=== PATIENT | female | born 1960 | race Caucasian/White ===

== ENCOUNTER 2018-02-02 08:09 | Day surgery (SDC) | payer OTHER ==
--- OUTSIDE RECORDS SUMMARY | 2018-02-02 08:18 | XMS REPORT ---
:1960 [facility] Address [address] [place] [address] [address] Care Team Providers Name Role Phone DR GEMINI STUBBS Unavailable Unavailable Problems This patient has no known problems. Allergies, Adverse Reactions, Alerts This patient has no known allergies or adverse reactions. Medications This patient has no known medications. Encounters Start End Encounter Admission Attending Care Care Encounter Date/Time Date/Time Type Type Clinicians Facility Department ID 2017-07-03 2017-07-03 Outpatient C JOSSE STUBBS [facility] [place] [id number] 05:28:00 12:46:00 GEMINI Results Test Description Test Time Test Comments Text Results Atomic Results Result Comments URINE MONOCLONALFB 2017-07-03 10:47:00 Test Item Value Reference Range Comments PREG UR (test code=PGU) NEGATIVE NEGATIVE
--- NOTE | 2018-02-02 08:25 | EKG ---
Test Date: 2018-02-02 Test Time: 07:56:57 German Tutor: CONOR MEASUREMENT RESULTS: Intervals: Rate: 67 CA: 156 QRSD: 110 QT: 412 QTc: 435 Webster: P: -2 CA: 156 QRS: -10 T: 15 INTERPRETIVE STATEMENTS: Normal sinus rhythm Normal ECG Compared to ECG 06/10/2017 13:25:08 Left ventricular hypertrophy no longer present Electronically Signed On 02-02-18 08:25:21 CDT by Mac Mensah
[2018-02-02] MEDS ORDERED: SCOPOLAMINE HYDROBROMIDE PATCH TD ONE (08:26)
[2018-02-02] MEDS ORDERED: CEFAZOLIN/SWI 1gm 1 GM/10 ML SYR ONE (08:26)
[2018-02-02] MEDS ORDERED: Ringers Lactate 1,000 ML IV ONE ×2 (08:26→11:12)
[2018-02-02 08:40] LABS: Urine Appearance CLEAR; Urine Bilirubin NEGATIVE (NEG); Urine Color PALE YELLOW; Urine Glucose NEGATIVE (NEG); Urine Specific Gravity 1.025 (1.005-1.030)
[2018-02-02 08:41] LABS: Urine Blood NEGATIVE (NEG); Urine Microscopic Reflex NO UMIC; Urine Protein NEGATIVE (NEG); Urine Urobilinogen 0.2 mg/dL (0.2-1.0); Urine pH 5.5 (5.0-7.0)
[2018-02-02 08:58] LABS: Potassium 4.1 mEq/L (3.6-5.0)
[2018-02-02] MEDS ORDERED: EPINEPHRINE/PF 1 MG/ML AMP ONE (09:01)
[2018-02-02 09:02] LABS: Absolute Lymphocytes (CBC) 2.7 K/uL (0.7-4.9); Absolute Monocytes 0.6 K/uL (0.1-1.3); Absolute Neutrophil 2.2 K/uL (1.8-8.0); Eosinophils % 4.4 % (0-4.4); Hematocrit 39.6 % (36.0-45.0); Lymphocytes % 46.2 % (15.3-44.8); MCH 29.7 pg (27.0-35.0); MCV 89.4 fL (80-100); MPV 9.3 fL (7.6-11.3); RBC Red Blood Cell Count 4.43 M/uL (3.86-4.86)
[2018-02-02] MEDS ORDERED: NA CHLORIDE 0.9% 2,000 ML ONE (09:02)
[2018-02-02] MEDS ORDERED: PROPOFOL 200 MG/20 ML VIAL IV ONE (09:21)
[2018-02-02] MEDS ORDERED: ROCURONIUM 50 MG/5 ML VIAL IV ONE (09:22)
[2018-02-02] MEDS ORDERED: FENTANYL CITR 250 MCG/5 ML ONE (09:22)
[2018-02-02] MEDS ORDERED: LIDOCAINE 2% MPF 5 ML VIAL ONE (09:22)
[2018-02-02] MEDS ORDERED: ONDANSETRON 4 MG/2 ML VIAL ONE ×2 (09:22→11:59)
[2018-02-02] MEDS ORDERED: MIDAZOLAM HCL 2 MG/2 ML INJ ONE (09:22)
[2018-02-02 10:31] LABS: Blood Morphology Comment NOT SEEN (NOT SEEN); Platelet Estimate ADEQ
[2018-02-02] MEDS ORDERED: KETOROLAC 30 MG/ML INJ ONE (11:23)
--- NOTE | 2018-02-02 11:24 | RAD REPORT ---
EXAM DESCRIPTION: RADOP - Outpt Chest Pa/Lat (2 Views) - 02/02/2018 8:02 am CLINICAL HISTORY: Chest pain. COMPARISON: None. FINDINGS: Calcified granuloma is present in the right lower lobe laterally. The lungs are otherwise clear. The heart is upper limit of normal in size. No displaced fractures.
[2018-02-02] MEDS ORDERED: Mastisol Adhesive Liq ONE (11:27)
[2018-02-02] MEDS ORDERED: MORPHINE 10 MG/ML VIAL ONE (11:35)
[2018-02-02] MEDS: MEPERIDINE HCL 50 MG/ML AMP ONE ×2 (12:00→12:10)
[2018-02-02] MEDS ORDERED: HYDROCODONE/APAP 7.5/325 MG TAB ONE (13:42)
--- NOTE | 2018-02-02 22:42 | OP ---
Surgeon: Wilber Sarah MD Electric Power Superintendent: Max. Preoperative Diagnosis: Lipodystrophy of abdomen, breasts, flanks, and back. Postoperative Diagnosis: Lipodystrophy of abdomen, breasts, flanks, and back. Procedure Performed: Tumescent liposuction; 3700 in, 4925 out. Anesthesia: General. Procedure In Detail: After satisfactory induction of general anesthesia, the patient had been placed on sterile sheets and had been prepped. She was placed with the right side up. She underwent infus ion of the right flank with 300, right chest with 300, right breast with 200, and the right abdomen w ith 200, with an aspirate of 725 on the right flank, aspirate of 300 on the right chest, aspirate of 150 on the right breast, and 150 on the right abdomen. She was then placed with right side down. Le ft side was re-prepped as needed. Right flank 400 in and 1075 out, left chest 200 in and 175 out, le ft abdomen 400 in and 100 out, and left breast 400 in and 700 out. The patient was then placed supin e and was prepped again. The right-sided drapes were applied in the usual manner. Left breast 400 i n and 700 out, right breast 400 in and 700 out. The left anterior abdomen 400 in and 500 out. The r ight anterior abdomen 500 in and 400 out. The total amount infused was approximately 3700. Amount r emoved was 4925. The wounds were closed with 4-0 PDS over the breasts. A compression garment was applied. The patient tolerated the procedure well and returned to recovery. SANCHO/BRITTANI Voice ID: [id number] Report ID: [id number]
== END 2018-02-02 14:30 | disposition home or self-care (01) ==
LOC: OR 08:09
PROVIDERS: ATTEND Specialist
PROC: 0H0V3ZZ Alteration of Bilateral Breast, Percutaneous Approach (ICD-10-PCS; 2018-02-02)
PROC: 0J073ZZ Alteration of Back Subcutaneous Tissue and Fascia, Percutaneous Approach (ICD-10-PCS; 2018-02-02)
PROC: 0J083ZZ Alteration of Abdomen Subcutaneous Tissue and Fascia, Percutaneous Approach (ICD-10-PCS; principal; 2018-02-02 09:00)
DX: E88.1 Lipodystrophy, not elsewhere classified (principal); I10 Essential (primary) hypertension; E66.9 Obesity, unspecified
CPT/HCPCS: 36415; 71046; 80048; 81003; 85025; 93005; J0171; J0690; J2175; J2250; J2405; J7030